=== PATIENT | male | born 1970 | race Caucasian/White ===

== ENCOUNTER 2019-06-07 08:47 | Outpatient (CLI) | payer BC ==
--- NOTE | 2019-06-07 10:18 | MRI ---
MR of the left shoulder without contrast INDICATION: Left shoulder pain. Diagnosis code M75.42 TECHNIQUE: Sagittal T1, axial and coronal PD fat sat, sagittal and coronal T2 fat sat images were obt ained of the left shoulder. COMPARISON: None. FINDINGS: Motion artifact limits image detail. Rotator cuff: There is a partial-thickness bursal surface tear involving the mid to posterior infrasp inatus at the footprint best seen on images 15 through 17 of series 4 and images 9 through 11 of series 10. There is mild tendinosis of the supraspinatus and infraspinatus. Glenohumeral joint: Articular cartilage is intact. Glenoid labrum: There is a full-thickness tear involving the posterior glenoid labrum extending from approximately the 10:00 through the 7:00 position. Biceps tendon and biceps anchor: Intact and located. Acromion clavicular joint: Mild AC joint osteoarthrosis. Subacromial subdeltoid space: No appreciable fluid. Axillary region: No lymphadenopathy. Surrounding shoulder musculature: Normal. No evidence of atrophy or strain. IMPRESSION: 1. 1. Partial-thickness bursal surface tear involving the mid to posterior infraspinatus at the footprin t involving 50% of the tendon thickness. 2. Full-thickness tear involving the posterior glenoid labrum. 3. Mild AC joint osteoarthrosis.
== END 2019-06-07 08:48 | disposition home or self-care (01) ==
LOC: SCSMRI 08:47
PROVIDERS: ATTEND Orthopaedic Surgery
DX: M75.42 Impingement syndrome of left shoulder (principal); S41.012A Laceration without foreign body of left shoulder, initial encounter; S43.432D Superior glenoid labrum lesion of left shoulder, subsequent encounter; M19.012 Primary osteoarthritis, left shoulder

== ENCOUNTER 2024-06-14 08:40 | Outpatient (CLI) | payer OTHER | END 2024-06-14 08:41 | disposition home or self-care (01) | LOC: SCSMRI 08:40 | PROVIDERS: ATTEND Orthopaedic Surgery | DX: M23.307 Other meniscus derangements, unspecified meniscus, left knee (principal); S83.242A Other tear of medial meniscus, current injury, left knee, initial encounter; M25.462 Effusion, left knee ==